=== PATIENT | male | born 1990 | race Caucasian/White ===

== ENCOUNTER 2019-09-01 17:19 | Emergency (ER) | payer OTHER ==
[~2019-09-01] VITALS: Ht 185.4 cm; Wt 83.9 kg
[2019-09-01 17:42] VITALS: BP 123/82
--- NOTE | 2019-09-01 17:43 | NUR ---
ED Nurse Note: Patient walked in to ER c/o right second finger pain. States closed door on that finger 18 days ago.
--- NOTE | 2019-09-01 17:58 | Emergency Room Report ---
History of Present Illness General Chief Complaint: Upper Extremity Injury Source: Patient Present Illness HPI 28-year-old male with no significant past medical history here complaining of left index finger pain x18 days. Patient reports that 18 days ago he crushed that in between 2 doors at work. 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 Has not taken medication for pain. Denies all other injuries. Has full range of motion. No point tenderness noted. Denies tingling and numbness. COVID-19 risk:Contact w/high r: No COVID-19 risk:Travel to affect: No Has patient experienced whitney: No Allergies: Coded Allergies: No Known Allergies (Unverified , 09/01/19) Patient History Past Medical History: see triage record Past Surgical History: none Pertinent Family History: none Immunizations: UTD Reviewed Nursing Documentation: PMH: Agreed; PSxH: Agreed Nursing Documentation-PMH Past Medical History: No History, Except For Review of Systems All Other Systems: negative except mentioned in HPI Physical Exam Vital Signs Date Time Temp Pulse Resp B/P (MAP) Pulse Ox O2 Delivery O2 Flow Rate FiO2 09/01/19 17:33 98.1 83 17 123/82 (96) 98 Room Air Sp02 EP Interpretation: reviewed, normal General Appearance: no apparent distress, alert, GCS 15, non-toxic Head: normocephalic, atraumatic Eyes: bilateral eye normal inspection, bilateral eye PERRL ENT: hearing grossly normal, normal pharynx, no angioedema, normal voice Neck: full range of motion, supple/symm/no masses Respiratory: chest non-tender, lungs clear, normal breath sounds, no rhonchi, no retraction, no wheezing, speaking full sentences Cardiovascular #1: regular rate, rhythm, no edema, no murmur, normal capillary refill Cardiovascular #2: 2+ radial (R), 2+ radial (L) Gastrointestinal: normal bowel sounds, non tender, soft, non-distended, no guarding, no rebound Rectal: deferred Genitourinary: no CVA tenderness Musculoskeletal: back normal, normal range of motion, digits/nails normal, non- tender Neurologic: alert, motor strength/tone normal, oriented x3, sensory intact, responsive, speech normal Psychiatric: judgement/insight normal, memory normal, mood/affect normal, no suicidal/homicidal ideation Skin: no rash Lymphatic: no adenopathy Procedures Splinting Splinting : Consent: Verbal Location: Left index finger Pre-Made Type: metal Pre-Proc Neuro Vasc Exam: normal Post-Proc Neuro Vasc Exam: normal Patient Tolerated: Well Complications: None Medical Decision Making PA Attestation All my diagnosis and treatment plans were reviewed ad discussed with my supervising physician Dr. Bennett Diagnostic Impression: Primary Impression: Crushing injury of finger ER Course 28-year-old male with no significant past medical history here complaining of left index finger pain x18 days. Patient reports that 18 days ago he crushed that in between 2 doors at work. 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 Has not taken medication for pain. Denies all other injuries. Has full range of motion. No point tenderness noted. Denies tingling and numbness. Ddx considered but are not limited to: Hand sprain, hand sprain, hand fracture, finger fracture versus contusion versus crushing injury Vital signs: are WNL, pt. is afebrile H&PE are most consistent with : Crushing injury of index finger ORDERS: Hand x-ray, ED INTERVENTIONS: Symptomatic metal splint applied DISCHARGE: At this time pt. is stable for d/c to home. Will provide printed patient care instructions, and any necessary prescriptions. Care plan and follow up instructions have been discussed with the patient prior to discharge. Patient reports that he has Tylenol at home. Follow nurse orthopedic, take medication as directed, if worsening symptoms return to the emergency room Other X-Ray Diagnostic Results Other X-Ray Diagnostic Results : X-Ray ordered: Left index finger # of Views/Limited Vs Complete: 3 View Indication: Pain EP Interpretation: Yes PA Xray: Interpretation reviewed, by supervising MD, and agrees with findings. Interpretation: no dislocation, no soft tissue swelling, no fractures Impression: No acute disease Electronically Signed by: Levy Oconnor PA-C Last Vital Signs Date Time Temp Pulse Resp B/P (MAP) Pulse Ox O2 Delivery O2 Flow Rate FiO2 09/01/19 17:42 98.1 17 123/82 98 Room Air 09/01/19 17:33 83 Disposition: HOME, SELF-CARE Condition: Stable Referrals: NOT CHOSEN IPA/MD,REFERRING (PCP) Patient Instructions: Crush Injury, Fingers or Toes, [id number] Levy Pruett Sep 01, 2019 17:58
[2019-09-01 18:01] VITALS: BP 123/82
--- NOTE | 2019-09-01 18:02 | NUR ---
ED Nurse Note: Pt cleared by health care Provider for discharge. DC instructions/prescription was given and explained to pt and verbalized understanding of teachings. All medical deviecs such as ID band removed. Pt is AAO x4, ambulatory and left with all personal belongings.
--- NOTE | 2019-09-02 13:11 | Diagnostic Imaging Report ---
Indication: pain in finger. trauma Findings: 3 views of the right fifth finger were obtained. No acute fractures, malalignment, erosions, or periosteal reaction are seen. Soft tissues are unremarkable. Impression: No acute findings.
== END 2019-09-01 18:02 | disposition home or self-care (01) ==
LOC: EMR 17:49
DX: S67.191A Crushing injury of left index finger, initial encounter (principal); W23.0XXA Caught, crushed, jammed, or pinched between moving objects, initial encounter; Y92.9 Unspecified place or not applicable
CPT/HCPCS: 29130; 99283